=== PATIENT | male | born 1980 | race Caucasian/White ===

== ENCOUNTER 2017-08-19 16:05 | Emergency (ER) | payer OTHER ==
[~2017-08-19] VITALS: Ht 175.3 cm; Wt 81.6 kg
[~2017-08-19 16:05] MED LIST: GEMFIBROZIL600 PO; LEXAPRO PO; LEXAPRO5 MG PO; LOP600 PO; LOVASTATIN PO; METOPROLOL25 MG PO; MEV20 PO; OMEPRAZOLE PO; PER5 PO; PRILOSEC OTC20 MG PO; REG10 PO
[2017-08-19 19:00] VITALS: BP 131/74
== END 2017-08-19 19:00 | disposition home or self-care (01) ==
LOC: ED 16:05
DX: S02.2XXA Fracture of nasal bones, initial encounter for closed fracture (principal); S02.31XA Fracture of orbital floor, right side, initial encounter for closed fracture; S09.90XA Unspecified injury of head, initial encounter; R04.0 Epistaxis; E11.9 Type 2 diabetes mellitus without complications; I10 Essential (primary) hypertension; Z79.84 Long term (current) use of oral hypoglycemic drugs; Z88.8 Allergy status to other drugs, medicaments and biological substances; Y08.89XA Assault by other specified means, initial encounter; Y93.89 Activity, other specified; Y92.89 Other specified places as the place of occurrence of the external cause; Y99.8 Other external cause status
CPT/HCPCS: J1885

== ENCOUNTER 2017-09-25 10:59 | Inpatient (IN) | payer OTHER ==
[~2017-09-25] VITALS: Ht 175.3 cm; Wt 87.5 kg
[~2017-09-25 10:59] MED LIST changes: +LEXAPRO10 MG PO; -LEXAPRO5 MG PO; +PRILOSEC OTC20 M1; -PRILOSEC OTC20 MG PO
[2017-09-25 11:20] VITALS: Ht 175.3 cm; Wt 87.5 kg
[2017-09-25 14:41] LABS: BASOPHIL % 0.3 % (0-2); PLATELET COUNT 207 x10^3mcL (130-400); RED CELL DISTRIBUTION WIDTH 13.6 % (11.5-14.5)
[2017-09-25 14:43] LABS: CALCIUM 8.4 mg/dL (8.5-10.1); CARBON DIOXIDE 26.7 mmol/L (21-32); CHLORIDE SERUM 102 mmol/L (98-107); CREATININE SERUM 0.9 mg/dL (0.7-1.3); GFR1 > 60 mL/min; GLUCOSE SERUM 122 mg/dL (74-106); SODIUM SERUM 139 mmol/L (136-145)
[2017-09-25 14:47] LABS: ALKALINE PHOSPHATASE 86 U/L (46-116); ALT/SGPT 44 U/L (16-63); AMYLASE 90 U/L (25-115); AST/SGOT 22 U/L (15-37); BILIRUBIN TOTAL 0.39 mg/dL (0.20-1.00); LIPASE 1086 IU/L (73-393); TOTAL PROTEIN, SERUM 7.3 g/dL (6.4-8.2)
[2017-09-25] MEDS ORDERED: METOPROLOL SUCC50 M2 PO (15:23)
[2017-09-25] MEDS ORDERED: ZENPEP PO (15:24)
[2017-09-25] MEDS ORDERED: AFREZZA1 EACH IH (15:25)
[2017-09-25 16:25] LABS: UA SPECIFIC GRAVITY 1.015 (1.005-1.035); microscopic required? YES; urine erythrocyte NEGATIVE (NEGATIVE)
[2017-09-25 16:50] LABS: AMPHETAMINE QUAL UR NONE DETECTED (NEG <=1000)
[2017-09-25 17:01] LABS: FREE T4 0.87 ng/dL (0.76-1.46); FREE THYROXINE INDEX 2.1 ug/dL (1.4-4.5); T4(THYROXINE) 5.5 ug/dL (4.7-13.3)
[2017-09-25 17:23] LABS: MAGNESIUM 2.1 mg/dL (1.8-2.4); PHOSPHOROUS 3.3 mg/dL (2.5-4.9)
[2017-09-25 17:24] LABS: CHOLESTEROL/HDL RATIO 2.5
[2017-09-25 17:44] VITALS: BP 149/96
[2017-09-25 18:09] VITALS: BP 149/96
[2017-09-25 20:50] VITALS: BP 156/89
[2017-09-26 05:50] VITALS: BP 141/95
[2017-09-26 07:12] LABS: BASOPHIL % 0.3 % (0-2); PLATELET COUNT 145 x10^3mcL (130-400); RED CELL DISTRIBUTION WIDTH 13.5 % (11.5-14.5)
[2017-09-26 08:18] LABS: CALCIUM 8.2 mg/dL (8.5-10.1); CARBON DIOXIDE 24.5 mmol/L (21-32); CHLORIDE SERUM 104 mmol/L (98-107); CREATININE SERUM 0.6 mg/dL (0.7-1.3); GFR1 > 60 mL/min; GLUCOSE SERUM 129 mg/dL (74-106); MAGNESIUM 2.1 mg/dL (1.8-2.4); PHOSPHOROUS 3.3 mg/dL (2.5-4.9); POTASSIUM SERUM 3.5 mmol/L (3.5-5.1); SODIUM SERUM 137 mmol/L (136-145)
[2017-09-26 09:08] VITALS: BP 150/95
[2017-09-26 12:30] VITALS: BP 145/99
[2017-09-26 16:58] VITALS: BP 139/96
[2017-09-26 22:15] VITALS: BP 139/90
[2017-09-27 05:46] VITALS: BP 124/90
[2017-09-27 07:06] LABS: BASOPHIL % 0.3 % (0-2); PLATELET COUNT 142 x10^3mcL (130-400); RED CELL DISTRIBUTION WIDTH 13.7 % (11.5-14.5)
[2017-09-27 07:45] LABS: CALCIUM 8.1 mg/dL (8.5-10.1); CARBON DIOXIDE 29.4 mmol/L (21-32); CHLORIDE SERUM 104 mmol/L (98-107); CREATININE SERUM 0.7 mg/dL (0.7-1.3); GFR1 > 60 mL/min; GLUCOSE SERUM 122 mg/dL (74-106); MAGNESIUM 2.3 mg/dL (1.8-2.4); PHOSPHOROUS 3.6 mg/dL (2.5-4.9); SODIUM SERUM 140 mmol/L (136-145)
[2017-09-27 08:00] VITALS: BP 124/91
[2017-09-27] MEDS ORDERED: NORCO1 TA2 PO (10:03)
[2017-09-27 13:07] VITALS: BP 124/91
== END 2017-09-27 13:30 | disposition home or self-care (01) | DRG 438 ==
LOC: ED 10:59 → DU 15:07 → MU 09-26 07:46
PROVIDERS: Family Medicine; Specialist; Student in an Organized Health Care Education/Training Program
DX: K85.90 Acute pancreatitis without necrosis or infection, unspecified (principal); N17.0 Acute kidney failure with tubular necrosis; Z88.8 Allergy status to other drugs, medicaments and biological substances; I10 Essential (primary) hypertension; Z90.49 Acquired absence of other specified parts of digestive tract; E11.65 Type 2 diabetes mellitus with hyperglycemia; E78.5 Hyperlipidemia, unspecified; F41.9 Anxiety disorder, unspecified; E83.51 Hypocalcemia
CPT/HCPCS: 82962; 83880; 84439; J1170; J2270; J2405; J3490; J7030; Q0092; Q9967

== ENCOUNTER 2018-05-19 12:06 | Inpatient (IN) | payer OTHER ==
[~2018-05-19] VITALS: Ht 175.3 cm; Wt 99.5 kg
[~2018-05-19 12:06] MED LIST changes: +AFREZZA1 EACH IH; +METOPROLOL SUCC50 M2 PO; +NORCO1 TA2 PO; +ZENPEP PO
[2018-05-19 12:14] VITALS: Ht 175.3 cm; Wt 99.5 kg
[2018-05-19 15:12] LABS: BASOPHIL % 0.2 % (0-2); PLATELET COUNT 171 x10^3mcL (130-400)
[2018-05-19 15:20] LABS: microscopic required? NO
[2018-05-19 15:27] LABS: CALCIUM 8.6 mg/dL (8.5-10.1); CARBON DIOXIDE 26.7 mmol/L (21-32); CHLORIDE SERUM 99 mmol/L (98-107); CREATININE SERUM 0.8 mg/dL (0.7-1.3); GFR1 > 60 mL/min; GLUCOSE SERUM 259 mg/dL (74-106); POTASSIUM SERUM 4.1 mmol/L (3.5-5.1); SODIUM SERUM 134 mmol/L (136-145)
[2018-05-19 15:32] LABS: ALBUMIN 3.9 g/dL (3.4-5.0); ALKALINE PHOSPHATASE 135 U/L (46-116); ALT/SGPT 50 U/L (16-63); AST/SGOT 32 U/L (15-37); BILIRUBIN TOTAL 0.42 mg/dL (0.20-1.00); TOTAL PROTEIN, SERUM 7.5 g/dL (6.4-8.2)
[2018-05-19 15:42] LABS: urine erythrocyte NEGATIVE (NEGATIVE)
[2018-05-19 15:52] LABS: LIPASE 3054 IU/L (73-393)
[2018-05-19] MEDS ORDERED: REG5 PO (17:09)
[2018-05-19] MEDS ORDERED: LOPRESSOR50 M1 PO (17:09)
[2018-05-19] MEDS ORDERED: PROTONIX40 MG PO (17:10)
[2018-05-19] MEDS ORDERED: JARDIANCE10 MG PO (17:10)
[2018-05-19] MEDS ORDERED: ZOF4 PO (17:11)
[2018-05-19] MEDS ORDERED: TOUJEO300 U/ML (17:11)
[2018-05-19 17:34] LABS: HDL CHOLESTEROL 36 mg/dL (40-60); PHOSPHOROUS 2.7 mg/dL (2.5-4.9)
[2018-05-19 17:38] LABS: CHOLESTEROL 224 mg/dL (<200); CHOLESTEROL/HDL RATIO 6.2; TRIGLYCERIDES 546 mg/dL (<150)
[2018-05-19 17:48] VITALS: BP 151/94
[2018-05-19 17:54] LABS: RED BLOOD CELLS 3.8 M/mm3 (4.52-5.90)
[2018-05-19 17:57] LABS: T3 TOTAL 1.09 ng/mL
[2018-05-19 18:31] LABS: FREE T4 0.87 ng/dL (0.76-1.46); T4(THYROXINE) 6.2 ug/dL (4.7-13.3)
[2018-05-19 20:34] LABS: IRON 39 ug/dL (65-170); TOTAL IRON BINDING CAPACITY 372 ug/dL (250-450)
[2018-05-19 20:49] VITALS: BP 131/87
[2018-05-20 05:57] VITALS: BP 120/75
[2018-05-20 06:10] LABS: CALCIUM 7.6 mg/dL (8.5-10.1); CARBON DIOXIDE 25.3 mmol/L (21-32); CHLORIDE SERUM 102 mmol/L (98-107); CREATININE SERUM 0.6 mg/dL (0.7-1.3); GFR1 > 60 mL/min; GLUCOSE SERUM 149 mg/dL (74-106); PHOSPHOROUS 3.5 mg/dL (2.5-4.9); POTASSIUM SERUM 3.8 mmol/L (3.5-5.1); SODIUM SERUM 137 mmol/L (136-145)
[2018-05-20 06:26] LABS: BASOPHIL % 0.3 % (0-2); PLATELET COUNT 149 x10^3mcL (130-400); RED CELL DISTRIBUTION WIDTH 13.3 % (11.5-14.5)
[2018-05-20 08:47] VITALS: BP 133/75
[2018-05-20 16:39] VITALS: BP 143/85
[2018-05-20 16:41] LABS: AMPHETAMINE QUAL UR NONE DETECTED (See below)
[2018-05-20 19:43] VITALS: BP 146/92
[2018-05-21 04:52] VITALS: BP 144/88
[2018-05-21 06:26] LABS: BASOPHIL % 0.1 % (0-2); PLATELET COUNT 129 x10^3mcL (130-400); RED CELL DISTRIBUTION WIDTH 13.2 % (11.5-14.5)
[2018-05-21 06:33] LABS: CALCIUM 7.8 mg/dL (8.5-10.1); CARBON DIOXIDE 27.2 mmol/L (21-32); CHLORIDE SERUM 106 mmol/L (98-107); CREATININE SERUM 0.6 mg/dL (0.7-1.3); GFR1 > 60 mL/min; GLUCOSE SERUM 91 mg/dL (74-106); MAGNESIUM 1.9 mg/dL (1.8-2.4); PHOSPHOROUS 3.5 mg/dL (2.5-4.9); POTASSIUM SERUM 3.6 mmol/L (3.5-5.1); SODIUM SERUM 141 mmol/L (136-145)
[2018-05-21 08:27] VITALS: BP 139/87
[2018-05-21] MEDS ORDERED: LIPI10 PO (14:28)
[2018-05-21 14:54] VITALS: BP 139/87
== END 2018-05-21 15:38 | disposition home or self-care (01) | DRG 440 ==
LOC: ED 12:06 → MU 16:29
PROVIDERS: Emergency Medicine; Family Medicine
DX: K85.00 Idiopathic acute pancreatitis without necrosis or infection (principal); K86.1 Other chronic pancreatitis; E11.65 Type 2 diabetes mellitus with hyperglycemia; K76.0 Fatty (change of) liver, not elsewhere classified; R16.0 Hepatomegaly, not elsewhere classified; E66.9 Obesity, unspecified; I10 Essential (primary) hypertension; E78.5 Hyperlipidemia, unspecified; Z90.49 Acquired absence of other specified parts of digestive tract; Z88.6 Allergy status to analgesic agent; Z68.32 Body mass index [BMI] 32.0-32.9, adult; E78.2 Mixed hyperlipidemia
CPT/HCPCS: 83880; 84439; C9113; G0480; J2270; J2405; J7030; J8597; Q0092; Q0162; Q9966